=== PATIENT | female | born 1935 | race Caucasian/White ===

== ENCOUNTER 2020-08-22 16:48 | Emergency (ER) | payer OTHER, MEDICARE ==
[~2020-08-22] VITALS: Ht 157.5 cm; Wt 43.8 kg
[2020-08-22 16:49] VITALS: BP 168/90
--- NOTE | 2020-08-22 16:59 | NUR ---
CALLED [facility] TO RECEIVE MORE INFORMATION, FAXED MED LIST.
--- NOTE | 2020-08-22 17:14 | NUR ---
SPOKE TO [facility], FULL CODE. SHE IS INDEPENDANT LIVING. SHE IS IN [facility]ALTH CENTER BECAUSE SHE WAS ADMITTED TO [facility] ON 08/10/20 FOR COVID. SHE FINISHED 5 ROUNDS OF REMDESIVIR. CAME TO [facility] ON 08/17. SHE WAS FOUND IN HER ROOM SWEATING WITH NYSTAGMUS, DIAPHORESIS, APHASIA, INAPPROPRIATE CRYING EPISODES DUE TO 'NOT BEING ABLE TO SAY THE WORDS SHE WANTS. SHE HAS PMHX OF CHEMO, AND C-DIF., COPD, B-CELL LYMPHOMA, DYSPHAGIA, DEMENTIA-MILD, MALIGNANT NEOPLASM OF THE MAIN BRONCHUS, HTN, LUNG CX (DR SPENCER). NO IMPLANTS KNOWN. NO RECENT SURGERY KNOWN. JUDITH () NO LONGER LIVING, ABBY PADMINI [phone] IS SPOKESPERSON FOR PT. NO DPOA KNOWN (JESSICA'S DAUGHTER). NO FAMILY KNOW R/T PT. PT. USES WALKER FOR AMBULATING, NO FALLS IN LAST 3 MNTHS. PT. 96.5LBS, 62"
[2020-08-22 18:53] LABS: HEMATOCRIT 43.9 % (37.0-47.0); HEMOGLOBIN 14.6 gm/dL (12.0-15.0); MCH 35.7 pg (26.0-34.0); MCHC 33.2 g/dL (28.0-37.0); MCV 107.6 fL (80.0-100.0); PLATELET COUNT 327 thou/uL (150-400); RBC 4.07 mil/uL (4.20-5.00); RDW 17.7 % (10.5-14.5); WBC 10.4 thou/uL (4.0-11.0)
[2020-08-22 18:57] LABS: CALCIUM 9.1 mg/dL (8.5-10.1); CREATININE 0.8 mg/dL (0.6-1.0); MAGNESIUM 1.8 mg/dL (1.8-2.4); POTASSIUM 4.2 mmol/L (3.5-5.1)
[2020-08-22 19:08] LABS: APTT 30.7 Seconds (24.5-32.8); INR 1.3; PROTIME 13.2 Seconds (9.3-11.4)
[2020-08-22 19:20] LABS: ABSOLUTE NEUTROPHILS 8.1 thou/uL (1.4-8.2)
[2020-08-22 19:47] LABS: URINE BILIRUBIN NEGATIVE (Negative); URINE BLOOD 1+ (Negative); URINE CLARITY CLEAR; URINE COLOR YELLOW; URINE GLUCOSE-RANDOM* NEGATIVE (Negative); URINE KETONES 1+ (Negative); URINE LEUKOCYTES-REFLEX NEGATIVE (Negative); URINE PROTEIN (DIPSTICK) 1+ (Negative); URINE SPECIFIC GRAVITY >= 1.030 (1.005-1.035)
[2020-08-22 19:52] LABS: URINE NITRITE-REFLEX POSITIVE (Negative)
[2020-08-22 20:03] LABS: SQUAMOUS 4-10 Moderate /LPF (0-3)
[2020-08-22 20:04] LABS: URINE WBC-REFLEX 6-15 Few /HPF (0-5)
[2020-08-22 20:05] LABS: BACTERIA-REFLEX >30 Many /HPF (None Seen); CASTS None Seen /LPF (None Seen); CRYSTALS None Seen /LPF (None Seen); URINE RBC 3-10 Few /HPF (0-2)
[2020-08-22] MEDS ORDERED: ASA81BEC PO (21:30)
[2020-08-22] MEDS ORDERED: COLCHICINE0.6 M1 PO (21:31)
[2020-08-22] MEDS ORDERED: DILTIAZEM ER180 M2 PO (21:31)
[2020-08-22] MEDS ORDERED: DULOXETINE HCL40 MG PO (21:32)
[2020-08-22] MEDS ORDERED: LOMOTIL 2.5-0.01 TAB PO (21:32)
[2020-08-22] MEDS ORDERED: ZYPREXA 5 MG TAB5 M1 PO (21:33)
[2020-08-23 02:07] VITALS: BP 102/58
--- NOTE | 2020-08-29 07:55 | EKG ---
[facility] [place] [address] ELECTROCARDIOGRAM REPORT Name: FATUMA GÓMEZ Room #: [facility]#: [id number] Admission: 08/22/20 Attend Phys: Discharge: 08/23/20 Date of : 31 Report #: [id number] [facility] ED Test Date: 2020-08-22 Test Time: 18:35:39 Pat Name: FATUMA GÓMEZ Department: Room: 170 Gender: F Corrections Identification Technician: [email or web address] : 1935 Requested By: Jori Rebollar Order Number: [id number] MD: En Bazzi Measurements Intervals [place] Rate: 106 P: [place]: QRS: -63 QRSD: 102 T: 87 QT: 353 QTc: 469 Interpretive Statements Baseline artifact limits rhythm interpretation Possibly atrial flutter Abnormal R-wave progression, early transition LVH with secondary repolarization abnormality Left anterior hemiblock Baseline wander in lead(s) V4 No previous ECG available for comparison Electronically Signed On 08-23-2020 7:51:19 WEIGHT RECORDER by En Bazzi [email or web address] <ELECTRONICALLY SIGNED> By: En Bazzi MD, [facility] 08/23/20 [id number] En Bazzi MD, FAC /EPI
== END 2020-08-23 02:10 | disposition short-term general hospital (02) ==
LOC: ER 16:48 → EROBS 21:16
PROVIDERS: Emergency Medicine
DX: U07.1 COVID-19 (principal); G93.41 Metabolic encephalopathy; I48.91 Unspecified atrial fibrillation; J44.9 Chronic obstructive pulmonary disease, unspecified; N39.0 Urinary tract infection, site not specified; R41.82 Altered mental status, unspecified; R19.7 Diarrhea, unspecified; F32.9 Major depressive disorder, single episode, unspecified; Z79.82 Long term (current) use of aspirin; Z79.899 Other long term (current) drug therapy; Z91.041 Radiographic dye allergy status; Z88.1 Allergy status to other antibiotic agents; Z87.891 Personal history of nicotine dependence; Z85.038 Personal history of other malignant neoplasm of large intestine; Z85.118 Personal history of other malignant neoplasm of bronchus and lung; Z90.49 Acquired absence of other specified parts of digestive tract